=== PATIENT | male | born 1955 | race Hispanic/Latino ===

== ENCOUNTER 2021-06-27 12:48 | Emergency (ER) | payer MEDICARE ==
[~2021-06-27] VITALS: Ht 167.6 cm; Wt 81.7 kg
[~2021-06-27 12:48] MED LIST: CLOPIDOGREL75 MG PO; LO-DOSE ASPIRIN81 M1 PO; METFORMIN HCL1000 MG PO; NORVASC10 MG PO; PROTONIX20 MG PO; TOPROL XL50 MG PO
--- OUTSIDE RECORDS SUMMARY | 2021-06-27 12:58 | XMS ---
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 EBrittny VISIT COUNT (12 MO.) 2 [facility] TOTAL 2 NOTE: Visits indicate total known visits. ED/UCC VISIT TRACKING (12 MO.) 06/27/2021 12:51 [facility] TYPE: Emergency COMPLAINT: - CONCERNED ABOUT BLOOD LOSS THRU STOOL 06/09/2021 11:00 [facility] TYPE: Emergency COMPLAINT: - ABNORMAL LAB RESULTS DIAGNOSES: - care home (current) use of oral hypoglycemic drugs - manager terminal (current) use of aspirin - Anemia, unspecified - Other long-term (current) drug therapy - Gastrointestinal hemorrhage, unspecified INPATIENT VISIT TRACKING (12 MO.) No inpatient visits to display in this time frame [email or web address]
[2021-06-27] MEDS ORDERED: PROTONIX40 MG PO (18:36)
[2021-06-27] MEDS ORDERED: FEOSOL325 MG PO (18:36)
== END 2021-06-27 19:04 | disposition home or self-care (01) ==
LOC: ED 12:48
DX: K92.2 Gastrointestinal hemorrhage, unspecified (principal); D50.9 Iron deficiency anemia, unspecified; Z79.84 Long term (current) use of oral hypoglycemic drugs; Z79.82 Long term (current) use of aspirin; Z79.899 Other long term (current) drug therapy
CPT/HCPCS: 36415; 80048; 85025; 99284

== ENCOUNTER 2021-10-04 08:12 | Day surgery (SDC) | payer MEDICARE ==
[~2021-10-04] VITALS: Ht 172.7 cm; Wt 82.0 kg
[~2021-10-04 08:12] MED LIST changes: +FEOSOL325 MG PO; +LIPITOR40 MG PO; +PROTONIX40 MG PO; +VITAMIN C500 M5 PO
--- NOTE | 2021-10-04 11:25 | NUR ---
10/04/21 1125 Ayla Catalan 1010 PT ARRIVED IN PACU SLEEPY. ABD SOFT. 1030 REPOSITIONED SELF TO BACK. SITTING UP IN BED TALKING TO RN. 1045 NO C/O'S. 1100 TO DS TO GET DRESSED. 1110 DC INSTRUCTIONS GIVEN TO PT/ BY COSMETIC SALES ADVISOR. ALL QUESTIONS ANSWERED. WILL WAIT IN DS FOR RIDE AT 1500.
--- NOTE | 2021-10-05 08:02 | OR ---
[facility] [address], [place] [address] Signed DATE OF OPERATION: 10/04/2021 SURGEON: Brian Loera MD PREOPERATIVE DIAGNOSES: 1. Iron deficiency anemia. 2. Intermittent rectal bleeding. POSTOPERATIVE DIAGNOSES: 1. Minimal diffuse gastritis. 2. Circumferential rectosigmoid junction mass (22 cm-16 cm). 3. Mhwvcvq-yf-navkfnns internal hemorrhoids. PROCEDURES: 1. Esophagogastroduodenoscopy with CLOtest and biopsy of the antrum. 2. Colonoscopy with cold biopsies. 3. Rigid proctoscopy. ESTIMATED BLOOD LOSS: Minimal. 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 He is known to have peripheral arterial disease. He is also known to have iron-deficiency anemia. He has been taking his iron tablets. His Plavix was stopped that he was taking for the vascular disease. However, he has been on the aspirin. He talks about intermittent blood in the stool, but thinks it is better. Apparently, he has undergone multiple blood transfusions in the past. He speaks Tristanian fairly well, but we did have one of our nurses helping this morning as well. His does not speak Tristanian very well. It sounds like maybe he has had a colonoscopy in the past, but never an upper endoscopy. There is no family history of colon cancer or polyps. In the office I had given him pamphlets on both upper and lower endoscopy written in Tristanian and in [place]ian. He understands the nature of the two tests. There is risk including, but not limited to gas bloating, crampy abdominal pain, bleeding, perforation requiring surgery, and missed diagnosis. We also gave him our instructions for the bowel prep written in [place]ian and in Tristanian. We went through that in detail. He also understands the need for IV conscious sedation. He had expressed understanding and wished to proceed. PROCEDURE IN DETAIL: Electronically Signed By: BRIAN LOERA MD 10/05/21 0802 PATIENT NAME: BLAS GAINES OPERATIVE REPORT DATE OF : 53 REPORT #: [id number] PHYSICIAN: BRIAN LOERA MD PCP: JOSE NAJERA MD REPORT IS CONFIDENTIAL AND NOT TO BE RELEASED WITHOUT AUTHORIZATION [facility] [address] [place] [address] Signed Blas was taken into the endoscopy suite and placed in the supine semi-recumbent position. The posterior oropharynx was anesthetized with lidocaine spray. A bite block was utilized for the case. We gave him 7 mg of Versed and 100 mcg of fentanyl just to get through the upper endoscopy. Even then he was moving around and fighting us during the procedure. The adult gastroscope had been introduced and advanced under direct visualization out into the third portion of the duodenum. The duodenum and pyloric channel were unremarkable. He had very minimal if any inflammatory changes in the stomach. We took a biopsy of the antrum for CLOtest as well as pathologic review. Upon retroflexion of scope, there was no additional pathology noted. Particularly no obvious hiatal hernia. The scope was withdrawn up to the area of the GE junction, which was compliant without stricture. The Z-line remains intact. There was no Berry's mucosa. There was no distal esophagitis. The middle and upper esophagus were unremarkable. After this, the gas had been suctioned out and the gastroscope removed. Blas overall tolerated the procedure well. Blas was rotated into the left lateral decubitus position. We gave him an additional mg of Versed. With our digital rectal exam, he was obviously awake and talkative and not able to proceed with the colonoscope. We therefore had our anesthesia provider come and add propofol. The scope was inserted and slowly advanced. We immediately encountered a large circumferential tumor at 16 cm. It traveled up to 22 cm. We had to give additional propofol bolus at that time to get through this area. The scope did pass through without much resistance. We then pushed the scope up and around into the cecum itself. His bowel prep was moderate at best. We could see the ileocecal valve, but the cecum was covered in thick particulate stool matter. The scope was then slowly withdrawn. We did not see any other areas of polyps or tumors throughout the colon. There was no diverticulosis. We made our way back to the tumor in his distal sigmoid colon. We placed a tattoo at 22 cm and slowly brought the scope down and placed another tattoo at 16 cm. We then took several biopsies along the length of the tumor for pathologic review. The rectum itself was unremarkable. The scope was then retroflexed. We could see minimal to moderate internal hemorrhoid columns. After this, the adult colonoscope was then removed. We then inserted the rigid proctoscope up to 16 cm to the base of the tumor. Again, it was circumferential. The bulk of that portion of the tumor was anterior with rigid proctoscope in place. After this, the gas was allowed to escape and the rigid proctoscope was removed. Blas tolerated the procedure much better after addition of his propofol. RECOMMENDATIONS: I will see Blas back in my office in 7 to 10 days to review his results. Electronically Signed By: BRIAN LOERA MD 10/05/21 0802 PATIENT NAME: BLAS GAINES OPERATIVE REPORT DATE OF : 53 REPORT #: [id number] PHYSICIAN: BRIAN LOERA MD PCP: JOSE NAJERA MD REPORT IS CONFIDENTIAL AND NOT TO BE RELEASED WITHOUT AUTHORIZATION [address] [address] Signed Brian Loera MD ALB/MODL /[id number] cc: Jose Najera MD [facility] Brian Loera MD Copies: BRIAN LOERA MD ~ Electronically Signed By: BRIAN LOERA MD 10/05/21 0802 PATIENT NAME: BLAS GAINES OPERATIVE REPORT DATE OF : 53 REPORT #: [id number] PHYSICIAN: BRIAN LOERA MD PCP: JOSE NAJERA MD REPORT IS CONFIDENTIAL AND NOT TO BE RELEASED WITHOUT AUTHORIZATION
--- NOTE | 2021-10-06 15:24 | PATH ---
[facility] [address], [place] [address] Signed THIS IS AN ADDENDUM REPORT SPECIMEN(S): A ANTRUM/PYLORUS BIOPSY SPECIMEN(S): B DISTAL SIGMOID BIOPSY MASS SPECIMEN SOURCE: A. ANTRUM/PYLORUS BIOPSY B. DISTAL SIGMOID BIOPSY MASS CLINICAL HISTORY: Esophagogastroduodenoscopy/colonoscopy. Preop: Anemia, rectal bleeding. EGD: Mild gastritis. Postop: Internal hemorrhoids, rectosigmoid mass. FINAL PATHOLOGIC DIAGNOSIS: A. Stomach, antrum/pylorus, biopsy: - Antral mucosa with chronic, inactive gastritis. - Negative for Helicobacter organisms on HE stain. - Negative for dysplasia or malignancy. B. Colon, distal sigmoid mass, biopsy: - Adenocarcinoma. - See comment. COMMENT: Regarding specimen A: An H. pylori immunohistochemical stain is pending and will be reported in an addendum. Regarding specimen B: As part of [facility]' Quality Improvement Program, this case was reviewed by another member of our pathology staff. A diagnostic alert was initiated by Dr. Xavier on 10/05/2021. Mismatch repair (MMR) testing by IHC has been ordered and will be reported in an addendum. NAL:NRT:cml:C1NR MICROSCOPIC EXAMINATION: Histologic sections of all submitted blocks are examined by light microscopy. These findings, together with the gross examination, support the pathologic diagnosis. GROSS DESCRIPTION: Two specimens are received in two containers, labeled "MP." A. The specimen, labeled "MP, antrum biopsy," is received in formalin and consists of one biswas soft tissue fragment that measures 0.3 cm in greatest PATIENT NAME: AHMET GAINES PATHOLOGY DATE OF : 53 REPORT #: [id number] PHYSICIAN: LIGIA PATHOLOGY PCP: TERENCE HANLEY MD REPORT IS CONFIDENTIAL AND NOT TO BE RELEASED WITHOUT AUTHORIZATION [facility] [address] [address] Signed dimension. The specimen is entirely submitted in cassette (A1). B. The specimen, labeled "MP, distal sigmoid biopsy mass," is received in formalin and consists of five biswas soft tissue fragments that measure 0.1-0.2 cm in greatest dimension. The specimen is entirely submitted in cassette (B1). JS (under the direct supervision of a pathologist) The Gross Description was prepared using a voice recognition system. The report was reviewed for accuracy; however, sound-alike word errors, addition and/or deletions may occur. If there is any question about this report, please contact Client Services. PERFORMING LABORATORY: The technical component was performed by [facility], [address] [place] [id number] (CLIA# [id number]). [facility], [address] [address] (CLIA# [id number]). REASON FOR ADDENDUM: To add results of additional testing. ADDENDUM COMMENT: An H. pylori immunohistochemical stain (with appropriately staining controls) is negative for Helicobacter organisms. NAL:caw The technical component was performed by [facility], [address] [place] [address] (CLIA# [id number]). Professional interpretation was performed by [facility], [facility], [address] [address], [place], [place] [address] (CLIA# [id number]). COMMENT: Tumor cells show no loss of nuclear expression of MMR proteins. This correlates with a low probability of microsatellite instability. However, if there is a high clinical suspicion for Stearns syndrome (hereditary non-polyposis colorectal carcinoma syndrome) in this patient, additional testing should be considered. Please contact [facility] if such testing is indicated. NAL:[facility] ADDITIONAL NOTES: Immunohistochemical and/or in situ hybridization studies were performed on this PATIENT NAME: GIOVANNI HENDRIXAHMET PATHOLOGY DATE OF : 53 REPORT #: [id number] PHYSICIAN: LIGIA BENITEZ PCP: TERENCE HANLEY MD REPORT IS CONFIDENTIAL AND NOT TO BE RELEASED WITHOUT AUTHORIZATION [facility] [address], [place] [address] Signed case with the appropriate positive controls that react as expected. This test was developed and its performance characteristics determined by [facility]. It has not been cleared or approved by the U.S. Food and Drug Administration. The FDA has determined that such clearance or approval is not necessary. This test is used for clinical purposes. It should not be regarded as investigational or for research. [facility] is certified under the Clinical Laboratory Improvement Amendments of 1988 (CLIA) as qualified to perform high complexity clinical laboratory testing. Professional interpretation was performed by [facility], [address] [address] (CLIA# [id number]). REASON FOR ADDENDUM: REASON FOR ADDENDUM: To add results of additional testing. ADDENDUM PATHOLOGIC DIAGNOSIS: B. Colon, distal sigmoid, invasive adenocarcinoma, microsatellite instability testing by IHC: - MLH1: Intact nuclear expression. - MSH2: Intact nuclear expression. - MSH6: Intact nuclear expression. - PMS2: Intact nuclear expression. INTERPRETATION: Normal pattern. ADDENDUM MICROSCOPIC EXAMINATION: A panel of four antibodies is selected which will detect 95% of microsatellite unstable carcinomas. Testing is performed at the request of Dr. Xavier. Block: B1. Recut HE slide is prepared from the block. The presence of neoplastic glands and non-neoplastic internal control glands or stroma is confirmed. Internal control cells for MLH1, MSH2, PMS2 and MSH6 are positive. Neoplastic gland cells show the following: - MLH1: Positive. - MSH2: Positive. - MSH6: Positive. - PMS2: Positive. [facility] [place] [facility] [place] Diagnostician: Vaishali Xavier MD Pathologist PATIENT NAME: AHMET GAINES PATHOLOGY DATE OF : 53 REPORT #: [id number] PHYSICIAN: LIGIA PATHOLOGY PCP: TERENCE HANLEY MD REPORT IS CONFIDENTIAL AND NOT TO BE RELEASED WITHOUT AUTHORIZATION [facility] [address], [place] [address] Signed Electronically Signed 10/06/2021 Copies: ~ PATIENT NAME: DAVILA AHMET HENDRIX PATHOLOGY DATE OF : 53 REPORT #: [id number] PHYSICIAN: LIGIA PATHOLOGY PCP: TERENCE HANLEY MD REPORT IS CONFIDENTIAL AND NOT TO BE RELEASED WITHOUT AUTHORIZATION
== END 2021-10-04 11:10 | disposition home or self-care (01) ==
LOC: OPS 08:12 → DS 08:12 → OPS 09:00
PROVIDERS: ATTEND Colon & Rectal Surgery
PROC: 3E0H8KZ Introduction of Other Diagnostic Substance into Lower GI, Via Natural or Artificial Opening Endoscopic (ICD-10-PCS; 2021-10-04)
PROC: 0DB78ZX Excision of Stomach, Pylorus, Via Natural or Artificial Opening Endoscopic, Diagnostic (ICD-10-PCS; principal; 2021-10-04 09:00)
PROC: 0DBN8ZX Excision of Sigmoid Colon, Via Natural or Artificial Opening Endoscopic, Diagnostic (ICD-10-PCS; 2021-10-04 09:00)
DX: C18.7 Malignant neoplasm of sigmoid colon (principal); K29.50 Unspecified chronic gastritis without bleeding; D50.9 Iron deficiency anemia, unspecified; E11.51 Type 2 diabetes mellitus with diabetic peripheral angiopathy without gangrene; I10 Essential (primary) hypertension; E78.2 Mixed hyperlipidemia; I48.0 Paroxysmal atrial fibrillation; Z79.84 Long term (current) use of oral hypoglycemic drugs; Z89.431 Acquired absence of right foot
CPT/HCPCS: 87077; J2250; J2704; J3010; J7121